=== PATIENT | female | born 1985 | race Caucasian/White ===

== ENCOUNTER 2018-10-06 17:24 | Emergency (ER) | payer OTHER ==
[2018-10-06 17:33] VITALS: TEMP 97.9
[2018-10-06] MEDS ORDERED: SODIUM CHLORIDE 0.9% 500 ML 500 ML IV STA (17:49)
[2018-10-06] MEDS ORDERED: DEXAMETHASONE SOD PHOSPHATE 10 MG/ML 1 ML VIAL IV STA (17:49)
[2018-10-06] MEDS ORDERED: SODIUM CHLORIDE 0.9% 1,000 ML IV STA (17:49)
[2018-10-06] MEDS ORDERED: KETOROLAC 30 MG/ML 1 ML VIAL IVP STA (17:49)
[2018-10-06] MEDS ORDERED: METOCLOPRAMIDE 5 MG/ML 2 ML VIAL IVP STA (17:49)
--- NOTE | 2018-10-06 17:55 | ED ---
Headache HPI - General Chief Complaint: Headache Stated Complaint: migraine Time Seen by Provider: 10/06/18 17:43 Mode of arrival: ambulatory Limitations: no limitations - History of Present Illness Initial Comments: This 33-year-old white female presents with a complaint of a headache. She states that it is been present for the last 10 days. It seems worse in the retro-orbital region but is also diffuse and into the neck. She denies any fevers or chills. She does relate that she fell and hit her head approximately 3 months ago. She's apparently hit her head fairly significantly but did not get checked out. She does relate that she had a couple concussions when she was a child and she's had headaches ever since which is been called migraines. She has had some phonophobia but denies any photophobia. She has tried some peppermint oil and Motrin thus far with limited relief. She denies any visual changes or other neurologic complaints. No other modifying factors. - Related Data Home Medications Medication Instructions Recorded Confirmed Ibuprofen [Motrin Ib] 400 mg PO Q6H PRN 10/06/18 10/06/18 Previous Rx's Medication Instructions Recorded Amoxic-Pot Clav 875-125Mg 1 each PO Q12HR #20 tablet 10/06/18 [Augmentin Xr 875-125] Butalb/Acetaminophen/Caffeine 1 - 2 each PO Q4H PRN #20 tab 10/06/18 [Fioricet] Fluticasone Nasal [place] [Flonase 2 spr EA NOSTRIL DAILY #1 bottle 10/06/18 Nasal [place]] Allergies Allergy/AdvReac Type Severity Reaction Status Date / Time No Known Allergies Allergy Verified 10/06/18 18:09 Review of Systems ROS Statement: Those systems with pertinent positive or pertinent negative responses have been documented in the HPI. ROS Other: All systems not noted in ROS Statement are negative. Past Medical History Past Medical History: No Reported History History of Any Multi-Drug Resistant Organisms: None Reported Past Surgical History: No Surgical Hx Reported Past Psychological History: No Psychological Hx Reported Smoking Status: Current every day smoker Past Alcohol Use History: None Reported Past Drug Use History: None Reported General Exam - General Exam Comments Initial Comments: GENERAL: The patient is well nourished and well hydrated. VITAL SIGNS: Heart rate, blood pressure, respiratory rate reviewed as recorded in nurse's notes. EYES: Pupils are round and reactive. Extraocular movements are intact. No conjunctival / lid redness or swelling. ENT: No external evidence of injury, swelling, or ecchymosis. Airway is patent. Throat is clear. NECK: There is mild tenderness present to the right paraspinal musculature. No meningeal signs. No swelling or evidence of injury. No subcutaneous emphysema. Trachea is midline. No thyroid mass. HEART: Regular rate and rhythm. Good peripheral pulses. LUNGS/CHEST: Breath sounds clear and equal bilaterally. No rales, rhonchi, or wheezes. No ecchymosis, subcutaneous emphysema, or tenderness. ABDOMEN: Abdomen soft without tenderness. No palpable masses or organomegaly. No peritoneal signs. No abdominal wall swelling or ecchymosis. EXTREMITIES: No extremity tenderness. Normal muscle tone and function. No thoracolumbar tenderness. NEUROLOGIC: Sensation is grossly intact. Cranial nerve exam reveals face is symmetrical, tongue is midline, speech is clear. SKIN: No abrasions or ecchymosis is noted. No induration or masses noted. PSYCHIATRIC: Alert and oriented. Appropriate behavior and judgment. Limitations: no limitations Course Vital Signs 10/06/18 10/06/18 17:30 19:13 Temperature 97.9 F Pulse Rate 81 87 Respiratory 18 16 Rate Blood Pressure 126/73 108/59 O2 Sat by Pulse 97 99 Oximetry Medical Decision Making - Medical Decision Making The patient was seen and examined. All diagnostics were reviewed. An IV is established and she receives Decadron, Toradol, and Reglan intravenously. She receives some IV fluid hydration. A computed tomography scan the brain is completed. The computed tomography scan did not show any acute intracranial processes but does show evidence of maxillary sinusitis. The patient does relate having some chronic sinus problems. They do not appear any more severe than normal. Nevertheless, is felt as though she may have a degree of sinusitis which could be infectious versus ALLERGIC. It is felt as though she stable for discharge. She is markedly improved on recheck. She understands agrees with the following disposition and leaves in no distress. Disposition Clinical Impression: Migraine, Sinusitis Disposition: HOME SELF-CARE Condition: Good Prescriptions: Amoxic-Pot Clav 875-125Mg [Augmentin Xr 875-125] 1 each PO Q12HR #20 tablet Butalb/Acetaminophen/Caffeine [Fioricet] 1 - 2 each PO Q4H PRN #20 tab PRN Reason: Headache Fluticasone Nasal [place] [Flonase Nasal [place]] 2 spr EA NOSTRIL DAILY #1 bottle Is patient prescribed a controlled substance at d/c from ED?: No Referrals: None,Stated [Primary Care Provider] - 1-2 days Time of Disposition: 19:30
--- NOTE | 2018-10-06 18:54 | CT ---
EXAMINATION TYPE: CT brain wo con DATE OF EXAM: 10/06/2018 COMPARISON: None HISTORY: Headache CT DLP: 1060.4 mGycm. Automated Exposure Control for Dose Reduction was Utilized. TECHNIQUE: CT scan of the head is performed without contrast. FINDINGS: Ventricles and sulci appear normal. There is no mass effect nor midline shift. There is n o sign of intracranial hemorrhage. Calvarium is intact. There is fluid levels in the maxillary sinuse s. IMPRESSION: Negative CT scan of the brain. Maxillary sinusitis.
[2018-10-06 19:13] VITALS: RESP 16
--- NOTE | 2018-10-06 19:37 | ED ---
Disposition Clinical Impression: Migraine, Sinusitis Disposition: HOME SELF-CARE Condition: Good Instructions (If sedation given, give patient instructions): Acute Headache (ED), Sinusitis (ED) Prescriptions: Amoxic-Pot Clav 875-125Mg [Augmentin Xr 875-125] 1 each PO Q12HR #20 tablet Butalb/Acetaminophen/Caffeine [Fioricet] 1 - 2 each PO Q4H PRN #20 tab PRN Reason: Headache Fluticasone Nasal [place] [Flonase Nasal [place]] 2 spr EA NOSTRIL DAILY #1 bottle Is patient prescribed a controlled substance at d/c from ED?: No Referrals: None,Stated [Primary Care Provider] - 1-2 days
[2018-10-06 19:55] VITALS: BP 108/60; PULSE 81
== END 2018-10-06 20:02 | disposition home or self-care (01) ==
LOC: EC 17:24
DX: G43.909 Migraine, unspecified, not intractable, without status migrainosus (principal); J32.0 Chronic maxillary sinusitis; M54.2 Cervicalgia; F17.200 Nicotine dependence, unspecified, uncomplicated; Z91.81 History of falling
CPT/HCPCS: 99284; 96374; 96375 ×2; 96361 ×2; 70450; J1100; J2765; J1885